=== PATIENT | male | born 1980 ===

== ENCOUNTER 2022-05-17 06:25 | Day surgery (SDC) | payer OTHER ==
[~2022-05-17] VITALS: Ht 185.4 cm; Wt 87.1 kg
[~2022-05-17 06:25] MED LIST: PRILOSEC OTC20 MG PO
[2022-05-17] MEDS ORDERED: POLY119PG PO (13:12)
[2022-05-17] MEDS ORDERED: NEURONTIN600 M1 PO (13:12)
[2022-05-17] MEDS ORDERED: PERCOCET 5-3251 EACH PO (13:12)
== END 2022-05-17 16:05 | disposition home or self-care (01) ==
LOC: CIR.AMB 06:25
PROVIDERS: ATTEND Surgery
DX: K40.90 Unilateral inguinal hernia, without obstruction or gangrene, not specified as recurrent (principal); F10.21 Alcohol dependence, in remission